=== PATIENT | female | born 1945 | race Caucasian/White ===

== ENCOUNTER 2022-05-13 13:32 | Inpatient (IN) ==
[2022-05-13] MEDS ORDERED: Aspirin 325 MG TABLET PO ONE (14:23)
[2022-05-13] MEDS ORDERED: DilTIAZem 50 MG/50 ML IV.SOLN IVC SCH (14:30)
[2022-05-13] MEDS: DilTIAZem 50 MG/50 ML IV.SOLN IVC SCH ×2 (14:55→20:35)
[2022-05-13 14:58] LABS: Basophils # 0.1 K/mcL (0.0-0.2); Basophils % 0.8 %; Eosinophils # 0.2 K/mcL (0.0-0.6); Eosinophils % 1.8 %; Hematocrit 37.2 % (35.3-44.9); Hemoglobin 12.3 g/dL (11.5-15.4); Lymphocytes # 1.4 K/mcL (0.6-4.6); Lymphocytes % 13.3 %; Mean Corpuscular HGB Conc 33.1 g/dL (31.6-35.5); Mean Corpuscular Hemoglobin 28.3 pg (28.0-33.3); Mean Corpuscular Volume 85.7 fL (83.0-100.0); Mean Platelet Volume 9.4 fL (9.4-12.4); Monocytes # 0.9 K/mcL (0.0-1.3); Monocytes % 9.1 %; Neutrophils # 7.6 K/mcL (1.6-8.9); Platelet Count 339 K/mcL (140-400); Red Blood Count 4.34 M/mcL (3.82-4.97); Red Cell Distribution Width 13.6 % (11.5-14.5); White Blood Count 10.3 K/mcL (4.3-11.1)
[2022-05-13 15:05] LABS: INR 1.3; Prothrombin Time 14.1 Seconds (9.4-12.1)
[2022-05-13 15:07] LABS: Activated Partial Thrombo Time 32.6 Seconds (26.0-36.0)
[2022-05-13 15:16] LABS: BUN/Creatinine Ratio 24 (6-26); Blood Urea Nitrogen 21 mg/dL (8-23); Calcium 9.9 mg/dL (8.6-10.3); Carbon Dioxide 29 mEq/L (23-29); Chloride 98 mEq/L (98-107); Glucose 196 mg/dL (70-105); Osmolality,Calculated 288 (280-300); Potassium 3.9 mEq/L (3.5-5.1); Sodium 135 mEq/L (136-145)
[2022-05-13 15:17] LABS: Troponin I < 0.03 ng/mL (< 0.04)
[2022-05-13 15:30] LABS: Thyroid Stimulating Hormone 1.189 mcIU/mL (0.340-5.600)
[2022-05-13] MEDS ORDERED: Naloxone 0.4 MG/ML INJ IVP PRN (15:40)
[2022-05-13] MEDS ORDERED: Ondansetron ODT 4 MG TAB.RAPDIS SL PRN (15:40)
[2022-05-13] MEDS ORDERED: Melatonin 3 MG TABLET PO PRN (15:40)
[2022-05-13] MEDS ORDERED: *HR* Heparin 5,000 UNIT/ML VIAL IVP PRN ×2 (15:46)
[2022-05-13] MEDS ORDERED: *HR* Heparin 5,000 UNIT/ML VIAL IVP ONE (15:46)
[2022-05-13] MEDS ORDERED: D5% in Water 1,000 ML IVC PRN (15:51)
[2022-05-13] MEDS ORDERED: *HR* Dextrose 50 % in Water (Syg) 50 ML SYRINGE IVP PRN (15:51)
[2022-05-13] MEDS ORDERED: Dextrose Gel 15 GM/37.5 ML TUBE PO PRN ×2 (15:51)
[2022-05-13 17:48] LABS: Hematocrit 37.4 % (35.3-44.9); Hemoglobin 12.2 g/dL (11.5-15.4); Mean Corpuscular HGB Conc 32.6 g/dL (31.6-35.5); Mean Corpuscular Hemoglobin 28.1 pg (28.0-33.3); Mean Corpuscular Volume 86.2 fL (83.0-100.0); Mean Platelet Volume 9.4 fL (9.4-12.4); Platelet Count 340 K/mcL (140-400); Red Blood Count 4.34 M/mcL (3.82-4.97); Red Cell Distribution Width 13.6 % (11.5-14.5); White Blood Count 10.6 K/mcL (4.3-11.1)
[2022-05-13 18:03] LABS: Heparin anti-factor XA UFH < 0.04 IU/mL (0.30-0.70); Phosphorous 3.6 mg/dL (2.7-4.5)
[2022-05-13 18:04] LABS: INR 1.2; Prothrombin Time 13.4 Seconds (9.4-12.1)
[2022-05-13] MEDS: Insulin LISPRO 300 UNITS/3 ML VIAL SUBQ SCH (18:15)
[2022-05-13] MEDS: Heparin 25,000UNIT/250ML 1/2NS 25,000 UNIT/250 ML IV.SOLN IVC SCH (18:52)
[2022-05-14 01:24] LABS: Basophils # 0.1 K/mcL (0.0-0.2); Eosinophils # 0.4 K/mcL (0.0-0.6); Eosinophils % 4.7 %; Hematocrit 35.3 % (35.3-44.9); Hemoglobin 11.5 g/dL (11.5-15.4); Lymphocytes # 1.9 K/mcL (0.6-4.6); Mean Corpuscular HGB Conc 32.6 g/dL (31.6-35.5); Mean Corpuscular Hemoglobin 28.3 pg (28.0-33.3); Mean Corpuscular Volume 86.9 fL (83.0-100.0); Mean Platelet Volume 9.4 fL (9.4-12.4); Monocytes # 0.8 K/mcL (0.0-1.3); Monocytes % 9.5 %; Neutrophils # 5.4 K/mcL (1.6-8.9); Platelet Count 298 K/mcL (140-400); Red Blood Count 4.06 M/mcL (3.82-4.97); Red Cell Distribution Width 13.7 % (11.5-14.5); Segmented Neutrophils % 61.8 %; White Blood Count 8.7 K/mcL (4.3-11.1)
[2022-05-14 01:35] LABS: BUN/Creatinine Ratio 25 (6-26); Blood Urea Nitrogen 15 mg/dL (8-23); Carbon Dioxide 26 mEq/L (23-29); Chloride 103 mEq/L (98-107); Chol/HDL Ratio 3.6 (0-4.9); Cholesterol 182 mg/dL (< 200); Glucose 153 mg/dL (70-105); HDL Cholesterol 50 mg/dL (40-59); LDL Cholesterol,Calculated 109 mg/dL (< 100); Osmolality,Calculated 288 (280-300); Potassium 3.5 mEq/L (3.5-5.1); Sodium 137 mEq/L (136-145); Triglycerides 117 mg/dL (< 150)
[2022-05-14 03:34] LABS: Estimated Average Glucose 154 mg/dl
[2022-05-14] MEDS: DilTIAZem 50 MG/50 ML IV.SOLN IVC SCH (08:48)
[2022-05-14] MEDS: Insulin LISPRO 300 UNITS/3 ML VIAL SUBQ SCH ×3 (08:48→18:49)
[2022-05-14] MEDS: Acetaminophen 325 MG TABLET PO PRN (14:25)
[2022-05-14 17:40] LABS: INR 1.3; Prothrombin Time 14.2 Seconds (9.4-12.1)
[2022-05-14] MEDS ORDERED: Warfarin perPT PO PRN (18:00)
[2022-05-14] MEDS ORDERED: *HR* Warfarin 2.5 MG TABLET PO ONE (18:45)
[2022-05-14] MEDS: Heparin 25,000UNIT/250ML 1/2NS 25,000 UNIT/250 ML IV.SOLN IVC SCH (18:50)
[2022-05-15 06:17] LABS: INR 1.2; Prothrombin Time 13.5 Seconds (9.4-12.1)
[2022-05-15 06:20] LABS: Heparin anti-factor XA UFH < 0.04 IU/mL (0.30-0.70)
[2022-05-15 06:51] LABS: BUN/Creatinine Ratio 27 (6-26); Blood Urea Nitrogen 15 mg/dL (8-23); Calcium 9.1 mg/dL (8.6-10.3); Carbon Dioxide 23 mEq/L (23-29); Chloride 103 mEq/L (98-107); Glucose 171 mg/dL (70-105); Magnesium 1.8 mg/dL (1.6-2.6); Osmolality,Calculated 287 (280-300); Potassium 4.1 mEq/L (3.5-5.1); Sodium 136 mEq/L (136-145)
[2022-05-15] MEDS: Insulin DETEMIR 100 UNIT/ML X5UNITS SUBQ SCH (07:43)
[2022-05-15] MEDS: Insulin LISPRO 300 UNITS/3 ML VIAL SUBQ SCH ×3 (07:44→17:14)
[2022-05-15] MEDS ORDERED: Magnesium Sulfate 1 GM/102 ML PIGGYBACK IVPB ONE (10:07)
[2022-05-15 14:32] LABS: Amorphous Sediment,Urine Few per hpf (None-Few); Bilirubin,Urine Negative (Negative); Blood,Urine Negative (Negative); Clarity,Urine Turbid (Clear); Color,Urine Light-Yellow (Yellow); Glucose,Urine (UA) Normal (Normal); Ketones,Urine Negative (Negative); Leukocyte Esterase,Urine Negative (Negative); Mucus,Urine Few per lpf (None-Few); Nitrite,Urine Negative (Negative); PH,Urine 6.5 pH Units (5.0-8.0); Protein,Urine Negative (Neg-Trace); RBC,Urine 0-3 per hpf (0-3); Specific Gravity,Urine 1.016 (1.010-1.025); Squamous Epithelial Cell,Urine Few per hpf (None-Few); Urobilinogen,Urine Normal (Normal); WBC,Urine 0-3 per hpf (0-3)
[2022-05-15] MEDS: Heparin 25,000UNIT/250ML 1/2NS 25,000 UNIT/250 ML IV.SOLN IVC SCH (17:16)
[2022-05-15] MEDS ORDERED: *HR* Warfarin 2.5 MG TABLET PO ONE (18:00)
[2022-05-16] MEDS: Acetaminophen 325 MG TABLET PO PRN (02:02)
[2022-05-16 03:00] LABS: INR 1.2; Prothrombin Time 13.6 Seconds (9.4-12.1)
[2022-05-16] MEDS ORDERED: Metoprolol XL (24 HR) Succ 50 MG TAB.ER.24H PO SCH (09:00)
[2022-05-16 09:13] LABS: Hemoglobin 11.8 g/dL (11.5-15.4); Mean Corpuscular HGB Conc 32.8 g/dL (31.6-35.5); Mean Corpuscular Hemoglobin 28.5 pg (28.0-33.3); Mean Platelet Volume 9.7 fL (9.4-12.4); Platelet Count 306 K/mcL (140-400); Red Blood Count 4.14 M/mcL (3.82-4.97); Red Cell Distribution Width 13.7 % (11.5-14.5); White Blood Count 7.8 K/mcL (4.3-11.1)
[2022-05-16] MEDS: Insulin DETEMIR 100 UNIT/ML X5UNITS SUBQ SCH (09:20)
[2022-05-16] MEDS: Insulin LISPRO 300 UNITS/3 ML VIAL SUBQ SCH ×2 (09:21→12:43)
[2022-05-16 09:33] LABS: BUN/Creatinine Ratio 23 (6-26); Blood Urea Nitrogen 12 mg/dL (8-23); Calcium 9.5 mg/dL (8.6-10.3); Carbon Dioxide 29 mEq/L (23-29); Chloride 102 mEq/L (98-107); Glucose 145 mg/dL (70-105); Osmolality,Calculated 288 (280-300); Potassium 3.7 mEq/L (3.5-5.1); Sodium 138 mEq/L (136-145)
[2022-05-16 11:22] VITALS: BP 112/70; PULSE 44; TEMP 97.3; O2SAT 94
[2022-05-16] MEDS ORDERED: *HR* Warfarin 2.5 MG TABLET PO ONE (18:00)
== END 2022-05-16 14:35 | disposition home health service (06) | DRG 310 ==
LOC: EMEROOARM 13:32 → 3NENU 13:32 → SUATTDRO 15:39 → 3NENU 17:22
PROVIDERS: ADMIT Internal Medicine; ATTEND Internal Medicine